=== PATIENT | male | born 2000 | race Caucasian/White ===

== ENCOUNTER 2021-02-03 17:41 | Emergency (ER) | payer OTHER, SELFPAY ==
[2021-02-03 17:42] VITALS: BP 209/119; PULSE 97; RESP 16; TEMP 36.6; O2SAT 97; BMI 45.0
--- NOTE | 2021-02-03 18:53 | ED.RN ---
[facility] DID AN X-RAY TODAY AND PT. WAS TOLD HAD A HERNIATED DISK.
--- NOTE | 2021-02-03 19:41 | CM.ED ---
SW Note Referral Source: Case Find Referral Reason: No Primary Care Physician (PCP) SW reviewed chart and noted that patient has no PCP. SW provided patient with list of [facility] Phys[facility] List for reference. No other issues or concerns voiced at this time. SW remains available for any additional needs. Plan: Provided patient with PCP information Syl SUERO
--- NOTE | 2021-02-03 19:53 | MRI_ITS ---
STUDY: MRI LUMBAR SPINE WITHOUT CONTRAST REASON FOR EXAM: Male, 21 years old. bilateral leg weakness TECHNIQUE: Standardized fat and water weighted pulse sequences were obtained in the sagittal and axial planes. COMPARISON: None FINDINGS: T12-L1: Normal endplates. Normal disc height, hydration and morphology. Normal bilateral facet joints. Normal central canal and bilateral lateral recesses. Normal bilateral intervertebral neural foramina. Normal lumbar lordosis. There is no substantial scoliosis. Normal conus medullaris that terminates at the L1 vertebral body level. No clumping of nerve roots. Visualized distal cord shows normal signal and contour. L1-2: Disc desiccation and height loss with no disc bulge or protrusion and no central canal or neural foraminal narrowing. No facet arthropathy. L2-3: Normal endplates. Normal disc height, hydration and morphology. Normal bilateral facet joints. Normal central canal and bilateral lateral recesses. Normal bilateral intervertebral neural foramina. L3-4: Disc desiccation and height loss with a broad-based posterior disc bulge and more focal left paracentral disc protrusion significantly impinging upon the descending nerve roots, left greater than right. There is minimal extension into the proximal left neural foramina with minimal left neural foraminal narrowing. L4-5: Large right paracentral disc protrusion significantly impinges on right greater than left descending nerve roots. Minimal right neuroforaminal narrowing without nerve root impingement. L5-S1: Large left paracentral disc protrusion severely impinging descending nerve roots. There is extension into the left neural foramina with mild impingement on the exiting left S1 nerve root. Normal visualized sacral ala. Normal visualized paraspinous soft tissue structures. MRI/Spine Lumbar (Routine) IMPRESSION: Large disc protrusions resulting in severe central canal stenosis with nerve root impingement, left greater than right at L3-4, right greater than left at L4-5 and on the left at L5-S1. L1-2 disc desiccation and height loss without disc bulge or protrusion and no nerve root impingement. Electronically Signed: Scott Wilson DO at 22:01 EST Tel , Service support ,
[2021-02-03] MEDS: LORazepam 2 MG/ML Syringe IV (20:45)
[2021-02-03 21:52] VITALS: BP 161/97; PULSE 86; RESP 16; O2SAT 96
--- NOTE | 2021-02-03 23:28 | ED.VIS.BACK ---
HPI History of Present Illness Chief Complaint: Numb/Ting Detail of Chief Complaint: Back pain Informant: patient Onset/Context/Timing Onset: Days Context: Gradual Onset Timing: Continuous Quality: Sharp Location: Lumbar Current Severity: Mild Maximum Severity: Mild Worsened by: improves with Movement Relieved by: Nothing Associated Symptoms Associated Symptoms: Numbness, Tingling, Radiation to Right Leg and Radiation to Left Leg; Negative for Fever, Abdominal Pain, Dysuria, Unable to Ambulate, Unable to Transfer, Urinary Retention, Urinary Incontinence, Constipation and Fecal Incontinence Narrative Narrative: 21-year-old male no seen past medical history. States that he has had intermittent back problems for weeks. Over the last week he has developed initially left lateral thigh numbness and then the right. States today he was at a chiropractor who adjusted his neck. After that he states he was unable to ambulate. He denies any fever he denies any abdominal pain is never had back surgery. He denies any bowel or bladder incontinence. He states his week. Prior similar symptoms: No Recent Illness/Hospitalization: No PFSH PFSH Medical History no medical history no medical history Allergy/AdvReac Type Severity Reaction Status Date / Time cefdinir [From Omnicef] Allergy Hives Verified 02/03/21 17:44 Social History Smoking Status: Never smoker ROS ROS ED ROS Narrative Denies any recent illness. Back pain with radiation to his legs and lateral leg numbness bilaterally. Review of Systems ROS Unobtainable: Denies due to encephalopathy Constitutional Constitutional ED: Denies fever(s) Eyes Eyes: Denies change in vision ENT ENT ED: Denies ear pain Cardiovascular Cardiovascular: Denies chest pain Respiratory/Chest Respiratory/Chest: Denies dyspnea Gastrointestinal Gastrointestinal: Denies abdominal pain, diarrhea, nausea or vomiting Genitourinary Genitourinary ED: Denies dysuria or hematuria Musculoskeletal Musculoskeletal: Reports back pain; Denies arthralgias, myalgias or neck pain Integumentary Denies rash Neurologic Neurologic: Denies headache(s) Psychiatric Psychiatric: Denies depression Endocrine Endocrinology: Denies polyuria Hematologic/Lymphatic Hematologic/Lymphatic: Denies easy bruising Allergic/Immunologic Allergic/Immunologic ED: Denies urticaria EXAM Physical Exam Narrative Exam Narrative: 21-year-old male large male 6 foot 4/3 100 pounds. Vital signs are stable initial blood pressure is elevated was rechecked 161/97. HEENT exam unremarkable. Neck nontender. Lungs clear to auscultation bilaterally. Heart regular rhythm rate about 90 no murmur. Abdomen obese with soft nontender normal bowel sounds no peritoneal signs. Patient moving all four extremities. 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 Both lower extremities have decreased sensation on the lateral thighs. He has plantar flexion but weakened dorsiflexion consistent with foot drop. He has normal medial thigh sensation. He has normal perirectal tone. Back he has no reproducible tenderness. There is no signs of trauma. Neurologically he has decreased lateral thigh sensation bilaterally. He has foot drop bilaterally. And he has normal medial thigh sensation. Const Vital Signs: 02/03/21 17:42 02/03/21 21:52 Temperature 97.8 F Temperature Source Temporal Pulse Rate 97 86 Respiratory Rate 16 16 Blood Pressure 209/119 H 161/97 H Blood Pressure Mean 149 118 Pulse Ox 97 96 Oxygen Delivery Method Room Air Room Air Positive well nourished, well developed and obese; Negative for cachectic, contractures or unkempt General Appearance ED: well developed; Negative for unkempt, cachectic, contractures, NAD or pallor Nutritional Appearance: obese; Negative for cachectic HEENT Reports moist mucous membranes Negative for trauma or tenderness Eyes PERRL and EOMs intact bilaterally Neck no lymphadenopathy, supple and no JVD General: Negative for tenderness Resp normal respiratory effort and clear to auscultation bilaterally Effort and Inspection: Negative for pain with movement or other Auscultation: Negative for rales, rhonchi or wheezes Cardio regular rate, regular rhythm, S1 normal heart sound, S2 normal heart sound and no murmurs GI normal to inspection, nondistended, normoactive bowel sounds, soft to palpation, non-tender, non-distended and no masses Inspection: Negative for abdominal distention Palpation: Negative for tender, guarding or rebound tenderness present Back/Spine normal to inspection and no thoracic nor lumbar tenderness General Back: Negative for CVA tenderness or scar(s) Cervical Spine: Negative for cervical spine tenderness and Negative for paracervical muscle tenderness Thoracic Spine / Upper Back: Negative for paraspinal muscle tenderness Lumbar Spine / Lower Back: Negative for straight leg raise negative bilaterally or straight leg raise positive right Extremity Negative for normal to inspection Extremity Narrative: Bilateral lower extremity decreased sensation on the lateral thighs. Foot drop bilaterally. With decreased dorsiflexion. Normal medial thigh sensation. General Extremety ED: Negative for edema or tenderness General Extremity: Negative for edema Psych mental status grossly normal Appearance: Negative for unkempt Mood & Affect: Negative for depressed or tearful Skin no rashes or lesions noted and no wounds General Skin Exam: Negative for jaundice or pallor MDM MDM MDM Narrative Medical decision making narrative: 21-year-old male with lower extremity weakness, lateral thigh numbness and early signs of foot drop bilaterally. MRI being obtained. Prior to going an MRI due to his claustrophobia was given 2 mg IV of Ativan. Radiography Diagnostic Testing: Clinical Impression(s) from Imaging Studies Lumbar Spine MRI 02/03/21 19:53 IMPRESSION: Large disc protrusions resulting in severe central canal stenosis with nerve root impingement, left greater than right at L3-4, right greater than left at L4-5 and on the left at L5-S1. L1-2 disc desiccation and height loss without disc bulge or protrusion and no nerve root impingement. Electronically Signed: Scott Wilson DO at 22:01 EST Tel , Service support , I reviewed the MRI results. Concerning for L3, four and five disc protrusion and central canal stenosis. I discussed this at length with the patient. I called our spine surgeon on-call. I explained the patient I felt was in his best interest to be transferred to a larger facility night to be evaluated by either neurosurgery or spine surgery to determine how soon he would need surgery. Concern for possible long-term nerve damage, lower extremity weakness or cord injury or even paralysis. Patient understands this. He states that he has a family history of this. I called his mom she states that they have a history of lower spinal stenosis. She is getting him set up with her own spine surgeon. I explained to her my concern for long-term spinal cord or nerve damage or weakness or paralysis. Patient signed out AGAINST MEDICAL ADVICE and will follow up as an outpatient. He left prior to me giving him any further instructions or any prescriptions. I did speak to his mother via phone. Discharge Plan Triage Chief Complaint: Numb/Ting ED Provider: Tony,Yao Dx/Rx/DC Orders Clinical Impression: Spinal stenosis at L4-L5 level, Acute herniation of intervertebral disc Primary Care Provider: Care Physician,No Primary Referrals: Care Physician,No Primary [Primary Care Provider] - Disposition Disposition: Against Medical Advice
== END 2021-02-03 23:46 | disposition left against medical advice (07) ==
PROVIDERS: Emergency Provider Emergency Medicine
DX: M48.061 Spinal stenosis, lumbar region without neurogenic claudication (principal); M51.26 Other intervertebral disc displacement, lumbar region; E66.9 Obesity, unspecified; Z53.29 Procedure and treatment not carried out because of patient's decision for other reasons
CPT/HCPCS: 72148; 96374; 99282; A4216